=== PATIENT | female | born 1995 | race Hispanic/Latino ===

== ENCOUNTER 2018-08-10 07:58 | Outpatient (CLI) | payer OTHER ==
--- NOTE | 2018-08-10 11:07 | ULT ---
OB ULTRASOUND: HISTORY: Size and dates. FINDINGS: A single live intrauterine gestation is seen with measurements corresponding to an estimated gestatio nal age of 20 weeks 4 days and an ELAINE of 12/24/2018. The estimated weight measures 344 g (12 o z). measurements are as follows: BPD: 4.84 cm (20 weeks 5 days) HC: 18.22 cm (20 weeks 5 days) AC: 15.14 cm (20 weeks 3 days) FL: 3.23 cm (20 weeks 1 day) heart rate measures 149 beats per minute. The placenta is posteriorly located without evidence of placenta previa. The SHARON measures 15.87 cm. Three-vessel cord, cord insertion, kidneys, bladder, stomach, four-chambered heart, lateral mateo tricles, cerebellum, spine, lips/nose, and upper and lower extremities are visualized. No definite f etal anomalies are seen. IMPRESSION: Single live intrauterine of 20 weeks' 4 days' estimated gestational age and an estimated da te of delivery of 12/24/2018. POS: OFF
== END 2018-08-10 07:59 | disposition home or self-care (01) ==
LOC: BICULT 07:58
PROVIDERS: ATTEND Family Medicine
DX: Z34.82 Encounter for supervision of other normal pregnancy, second trimester (principal); Z3A.20 20 weeks gestation of pregnancy
CPT/HCPCS: 76805

== ENCOUNTER 2018-11-24 07:39 | Outpatient (CLI) | payer OTHER ==
--- NOTE | 2018-11-24 08:27 | ULT ---
FComplete obstetrical ultrasound INDICATION: History of gestational diabetes COMPARISON: Prior obstetrical ultrasound dated 08/10/2018 TECHNIQUE: Grayscale evaluation of the fetus was performed. Umbilical artery Doppler evaluation was a lso performed. FINDINGS: There is a single live gestation in vertex presentation. The placenta is slightly posterior and to th e maternal right. The umbilical artery was evaluated at the cord insertion, mid cord, and at the plac ental attachment. The waveform is low resistance with resistive index measured between 0.53 and 0.73. The SHARON measured 11.52 cm. Cardiac activity is noted 172 bpm. Biparietal diameter measures 8.32 cm, giving an estimated gestational age of 33 weeks and 4 days. Head circumference measures 30.31 cm, giving an estimated gestational age of 33 weeks and 5 days. Abdominal circumference measures 33.64 cm, giving an estimated gestational age of 37 weeks and 4 days . Femoral length was 6.86 cm, giving an estimated gestational age of 35 weeks and 2 days. The average gestational age by ultrasound is 35 weeks and 1 day with an estimated due date of 9. The estimated gestational weight is 2841 g (6 lbs. 4 oz.) (60th percentile). IMPRESSION: Single live intrauterine gestation with size and dates as above. Umbilical artery Doppler waveform ap peared within normal limits. Transcribed Date/Time: 11/24/2018 8:38 AM
== END 2018-11-24 07:40 | disposition home or self-care (01) ==
LOC: BICULT 07:39 → L&D/OP 16:00
PROVIDERS: ATTEND Family Medicine
DX: O24.410 Gestational diabetes mellitus in pregnancy, diet controlled (principal); Z3A.35 35 weeks gestation of pregnancy
CPT/HCPCS: 76700; 76805

== ENCOUNTER 2018-11-24 16:24 | Inpatient (IN) | payer OTHER, SELFPAY ==
[~2018-11-24 16:24] MED LIST: Bupivacaine/Epinephrine 0.25% 30 ML VIAL ONE
[2018-11-24 17:12] VITALS: BMI 30.7
[2018-11-24] MEDS ORDERED: NS / Oxytocin 40 units/1000ml 1,000 ML IV PRN (17:33)
[2018-11-24] MEDS ORDERED: Butorphanol Tartrate 1 MG/ML VIAL SLOW IVP PRN (17:33)
[2018-11-24] MEDS ORDERED: Promethazine HCl 25 MG/ML VIAL IM PRN (17:33)
[2018-11-24] MEDS ORDERED: Ondansetron PF 4 MG/2 ML Vial IVP PRN ×2 (17:33→21:34)
[2018-11-24 17:43] LABS: Mean Corpuscular HGB CONC 33.8 g/dL (32.0-36.0); Mean Corpuscular Hemoglobin 29.1 pg (27.0-31.0); Mean Corpuscular Volume 86.1 fL (78.0-98.0); Mean Platelet Volume 11.3 fL (7.4-10.4); Platelet Count 162 thou/uL (130-400); Red Blood Cell (RBC) Count 4.47 mill/uL (4.20-5.40)
[2018-11-24] MEDS ORDERED: NS w/ Oxytocin 10 units 500 ML IV SCH ×2 (17:45)
[2018-11-24] MEDS ORDERED: Fentanyl 4 mcg/Bup 0.1% Cadd 100 ML ONE (17:50)
[2018-11-24] MEDS ORDERED: Methylergonovine 0.2 MG/ML VIAL IM PRN (18:00)
[2018-11-24] MEDS ORDERED: HYDROcodone/Acetaminophen 5/325 mg Tablet PO PRN ×3 (18:00→21:34)
[2018-11-24] MEDS ORDERED: Diphenoxylate HCl/Atropine Tablet PO PRN (18:00)
[2018-11-24] MEDS ORDERED: Lidocaine 1% (PF) 30 ML VIAL SC PRN (18:00)
[2018-11-24] MEDS ORDERED: Ibuprofen 800 MG TAB PO PRN (18:00)
[2018-11-24] MEDS ORDERED: Carboprost 250 MCG/ML AMP IM PRN (18:00)
[2018-11-24] MEDS ORDERED: Ampicillin 2 GM in Sodium Chloride 0.9% 100 ML IVPB SCH (18:00)
[2018-11-24] MEDS ORDERED: Misoprostol 200 MCG TAB PR PRN (18:00)
[2018-11-24 18:14] LABS: Syphilis Antibody Nonreactive (Nonreactive); Syphilis Antibody Index 0.02 S/CO (<1.00 Non-Reactive)
[2018-11-24 19:11] LABS: HBSAg Index 0.33 S/CO (0-0.99); HIV (1/2) Antibody/Antigen Non-Reactive (NonReactive); HIV 1/2 INDEX 0.25 S/CO (<1.00); Hep B Surf Ag Non-Reactive S/CO (NonReactive)
[2018-11-24] MEDS: Lactated Ringer's 1,000 ML IV SCH (19:13)
[2018-11-24] MEDS ORDERED: NS / Oxytocin 40 units/1000ml 1,000 ML ONE ×2 (20:06→21:25)
[2018-11-24] MEDS ORDERED: Lidocaine 1% (PF) 30 ML VIAL ONE (20:06)
[2018-11-24] MEDS ORDERED: NS / Oxytocin 40 units/1000ml 1,000 ML IV SCH (21:34)
[2018-11-24] MEDS ORDERED: Bisacodyl 10 MG SUPP PR PRN (21:34)
[2018-11-24] MEDS ORDERED: diphenhydrAMINE 25 MG CAP PO PRN (21:34)
[2018-11-24] MEDS ORDERED: cloNIDine 0.1 MG TAB PO PRN (21:34)
[2018-11-24] MEDS ORDERED: Milk Of Magnesia 30 ML UDCUP PO PRN (21:34)
[2018-11-24] MEDS ORDERED: Docusate Calcium (SURFAK) 240 MG CAP PO SCH (21:45)
[2018-11-24] MEDS: Ibuprofen 800 MG TAB PO SCH (22:55)
[2018-11-24] MEDS ORDERED: hydrALAZINE 20 MG/ML VIAL SLOW IVP SCH (23:15)
[2018-11-24] MEDS ORDERED: hydrALAZINE 20 MG/ML VIAL ONE (23:17)
[2018-11-25] MEDS: Ibuprofen 800 MG TAB PO SCH ×3 (06:15→22:05)
[2018-11-25 07:27] LABS: Mean Corpuscular HGB CONC 33.5 g/dL (32.0-36.0); Mean Corpuscular Hemoglobin 28.6 pg (27.0-31.0); Mean Corpuscular Volume 85.4 fL (78.0-98.0); Mean Platelet Volume 10.1 fL (7.4-10.4); Platelet Count 163 thou/uL (130-400); White Blood Cell (WBC) Count 12.2 thou/uL (4.8-10.8)
[2018-11-25] MEDS: Docusate Calcium (SURFAK) 240 MG CAP PO SCH ×2 (09:03→22:05)
[2018-11-25] MEDS: Prenatal Vitamin 1 TAB PO SCH (09:03)
[2018-11-25] MEDS: Ferrous Sulfate 325 MG TAB PO SCH ×2 (09:03→17:52)
[2018-11-26] MEDS: Ibuprofen 800 MG TAB PO SCH ×2 (05:43→14:28)
[2018-11-26 08:42] VITALS: TEMP 98.1
[2018-11-26] MEDS: Ferrous Sulfate 325 MG TAB PO SCH ×2 (09:23→16:31)
[2018-11-26] MEDS: Prenatal Vitamin 1 TAB PO SCH (09:49)
[2018-11-26] MEDS: Docusate Calcium (SURFAK) 240 MG CAP PO SCH (09:49)
[2018-11-26 16:30] VITALS: BP 146/88
== END 2018-11-26 20:05 | disposition home or self-care (01) | DRG 807 ==
LOC: L&D/OP 16:24 → L&D 18:17 → 3SW 11-25 17:07
PROVIDERS: ADMIT Family Medicine; ATTEND Family Medicine
PROC: 10E0XZZ Delivery of Products of Conception, External Approach (ICD-10-PCS; principal; 2018-11-24)
DX: O60.14X0 Preterm labor third trimester with preterm delivery third trimester, not applicable or unspecified (principal); Z37.0 Single live birth; Z3A.36 36 weeks gestation of pregnancy; O24.420 Gestational diabetes mellitus in childbirth, diet controlled
CPT/HCPCS: 36415; 36416; 51702; 85027; 86762; 86780; 86850; 86900; 86901; 87340; 87389; 99285; J0290; J0360; J2001; J7050